=== PATIENT | female | born 1940 | race Caucasian/White ===

== ENCOUNTER 2020-03-20 10:30 | Day surgery (SDC) | payer MEDICARE ==
[~2020-03-20] VITALS: Ht 162.6 cm; Wt 54.8 kg
[2020-03-20] VITALS (12 sets, daily range): BP systolic 119–212; BP diastolic 61–122
[2020-03-20] MEDS ORDERED: normal saline 1,000 ML IV SCH (12:20)
[2020-03-20] MEDS ORDERED: vancomycin/NS 1 GM ADD-VANTAGE 250 ML IV ONE (12:20)
[2020-03-20] MEDS ORDERED: cefazolin/dext.iso 2gm/50ml 50 ML IV ONE (12:20)
[2020-03-20] MEDS ORDERED: ceFAZolin 2gm in dextrose, iso 50 ML IV ONE ×2 (12:21→14:56)
[2020-03-20] MEDS ORDERED: AZIL40TA PO (12:34)
[2020-03-20] MEDS ORDERED: HYDR12.55 PO (12:34)
[2020-03-20] MEDS ORDERED: ASPI-1265 PO (12:34)
[2020-03-20] MEDS ORDERED: OMEG1CAP13 PO (12:34)
[2020-03-20] MEDS ORDERED: DIAZ5TAB4 PO (12:34)
[2020-03-20] MEDS ORDERED: ORPH100T2 PO (12:34)
[2020-03-20] MEDS ORDERED: EST1T PO (12:34)
[2020-03-20 13:40] LABS: BASOPHILS # (AUTO) 0.1 X10'3 (0-0.2); EOSINOPHILS # (AUTO) 0.1 X10'3 (0-0.9); HEMATOCRIT 40.7 % (35.0-45.0); HEMOGLOBIN 13.7 g/dl (12.0-16.0); LYMPHOCYTES # (AUTO) 0.9 X10'3 (1.1-4.8); LYMPHOCYTES % (AUTO) 15.1 % (21-51); MEAN CORPUSCULAR HEMOGLOBIN 29.4 PG (27.0-31.0); MEAN CORPUSCULAR HGB CONC 33.6 g/dL (33.0-36.5); MEAN CORPUSCULAR VOLUME 87.5 FL (78-98); MEAN PLATELET VOLUME 7.7 FL (7.4-10.4); MONOCYTES # (AUTO) 0.5 X10'3 (0-0.9); MONOCYTES % (AUTO) 9.4 % (2-12); NEUTROPHILS # (AUTO) 4.1 X10'3 (1.8-7.7); NEUTROPHILS % (AUTO) 73.5 % (42-75); PLATELET COUNT 246 X10'3 (140-440); RED BLOOD COUNT 4.65 X10'6 (4.20-5.60); RED CELL DISTRIBUTION WIDTH 15.3 % (11.5-14.5); WHITE BLOOD COUNT 5.6 X10'3 (4.5-11.0)
[2020-03-20 13:54] LABS: ALANINE AMINOTRANSFERASE 21 U/L (12-78); ALBUMIN 3.7 G/DL (3.4-5.0); ALBUMIN/GLOBULIN RATIO 0.9 (1.1-1.5); ALKALINE PHOSPHATASE 105 IU/L (46-116); ANION GAP 10 (8-16); ASPARTATE AMINO TRANSFERASE 29 U/L (10-37); BILIRUBIN,TOTAL 0.5 MG/DL (0.1-1.0); BLOOD UREA NITROGEN 16 MG/DL (7-18); BUN/CREATININE RATIO 11.6 (6.6-38.0); CALCIUM 9.3 MG/DL (8.5-10.1); CHLORIDE 98 MMOL/L (99-107); CREATININE 1.38 MG/DL (0.40-0.90); POTASSIUM 4.2 MMOL/L (3.5-5.1); SODIUM 133 MMOL/L (135-145); TOTAL PROTEIN 7.6 G/DL (6.4-8.2); eGFR 37 ML/MIN
[2020-03-20 13:55] LABS: GLUCOSE 88 MG/DL (70-104)
[2020-03-20] MEDS ORDERED: midazolam 2 mg/2 ml injection ONE ×7 (14:56→16:58)
[2020-03-20] MEDS ORDERED: fentaNYL/PF 50MCG/1 ML 2ML syringe ONE ×2 (14:57→16:11)
[2020-03-20] MEDS ORDERED: LIDOcaine 1% W/epiNEPHrine 1:100,000 20ml vial ONE (14:57)
[2020-03-20] MEDS ORDERED: ceFAZolin 1000mg inj ONE (14:57)
[2020-03-20] MEDS ORDERED: Thrombin (Bovine) 5,000 unit vial TP ONE ×3 (16:41→16:49)
[2020-03-20] MEDS ORDERED: HYDROcodone/acetaminophen 10/325mg tab PO PRN (17:30)
[2020-03-20] MEDS ORDERED: HYDROcodone/acetaminophen 5mg/325mg tablet PO PRN (17:30)
--- NOTE | 2020-03-20 18:50 | NUR ---
Telephoned Dr. Mark re pt's continued elevated BP & L pneumothorax as resulted on CXR. Order received for 0.2mg clonidine PO now.
[2020-03-20] MEDS ORDERED: cloNIDine 0.1 mg tablet PO ONE (19:05)
--- NOTE | 2020-03-20 19:15 | NUR ---
Dr. Mark at bedside. New prescription written for Eliquis 5mg & faxed to [facility], copy retained for chart.
--- NOTE | 2020-03-20 19:49 | NUR ---
Called Dr. Mark re pt's elevated B/P after receiving clonidine @ 1910. Order received for 10mg hydralazine IV now.
[2020-03-20] MEDS ORDERED: hydrALAZINE 20mg/ml inj. IV ONE ×2 (19:50→19:57)
--- NOTE | 2020-03-20 20:28 | NUR ---
Dr. Mark telephoned, ok for pt to discharge. B/P 137/61.
--- NOTE | 2020-03-20 20:33 | NUR ---
Telephoned Dr. Mark re pt's complaints of nausea. Order received for Zofran IV.
[2020-03-20] MEDS ORDERED: ondansetron/PF 4mg/2ml inj IV ONE (20:35)
== END 2020-03-20 21:00 | disposition home or self-care (01) ==
LOC: SSTAY O 10:30
PROVIDERS: ATTEND Internal Medicine Cardiovascular Disease
DX: I49.5 Sick sinus syndrome (principal); I48.0 Paroxysmal atrial fibrillation; I44.30 Unspecified atrioventricular block; I10 Essential (primary) hypertension; Z90.49 Acquired absence of other specified parts of digestive tract; Z90.710 Acquired absence of both cervix and uterus; Z88.6 Allergy status to analgesic agent; Z88.8 Allergy status to other drugs, medicaments and biological substances; Z98.890 Other specified postprocedural states; Z79.899 Other long term (current) drug therapy
CPT/HCPCS: 33208; 36415; 71045; 80053; 83735; 85025; 85610; 93005; 99152; 99153; C1785; C1894; C1898; J0360; J0690; J2250; J2405; J3010; J3370; J7030; A4565; A4620; A6258